=== PATIENT | female | born 1980 | race Caucasian/White ===

== ENCOUNTER → 2017-02-11 | Outpatient (CLI) | payer OTHER ==
[~2017-02-11] MED LIST: 00186-0372-20; 00186-0372-20 IH; ALBUTEROL0.83 MG/ML IH; IBU600 MG PO; NAPROXEN 3375 MG/TAB PO; NORCO 325 MG-51 TAB PO; PERCOCET 325 MG1 TA2 PO; TUSS PO; ZYRTEC 10MG10 MG PO
== END ==
LOC: COL.RAD 13:00
DX: N83.202 Unspecified ovarian cyst, left side (principal)

== ENCOUNTER 2017-02-18 15:53 | Day surgery (SDC) | payer OTHER ==
[~2017-02-18] VITALS: Ht 172.7 cm; Wt 74.6 kg
[2017-02-18] VITALS (7 sets, daily range): BP systolic 103–122; BP diastolic 56–74; PULSE 73–81; TEMP 97–98
[~2017-02-18 15:53] MED LIST changes: -00186-0372-20 IH; -IBU600 MG PO; -NAPROXEN 3375 MG/TAB PO; -NORCO 325 MG-51 TAB PO; -ZYRTEC 10MG10 MG PO
[2017-02-18] MEDS ORDERED: NORCO 325 MG-51 TAB PO (16:12)
[2017-02-18] MEDS ORDERED: 00186-0372-20 IH (16:13)
[2017-02-18] MEDS ORDERED: NAPROXEN 3375 MG/TAB PO (16:13)
[2017-02-18] MEDS ORDERED: ZYRTEC 10MG10 MG PO (16:46)
[2017-02-18] MEDS ORDERED: PERCOCET 325 MG1 TA2 PO (18:51)
[2017-02-18] MEDS ORDERED: IBU600 MG PO (18:51)
== END 2017-02-18 21:20 | disposition home or self-care (01) ==
LOC: SDCO 15:53
DX: N83.12 Corpus luteum cyst of left ovary (principal); N83.8 Other noninflammatory disorders of ovary, fallopian tube and broad ligament; N70.11 Chronic salpingitis; K55.069 Acute infarction of intestine, part and extent unspecified; J45.909 Unspecified asthma, uncomplicated; F17.210 Nicotine dependence, cigarettes, uncomplicated; M79.7 Fibromyalgia; Z80.49 Family history of malignant neoplasm of other genital organs; Z80.1 Family history of malignant neoplasm of trachea, bronchus and lung
CPT/HCPCS: G0378; J0330; J1100; J1885; J2250; J2270; J2405; J2550; J2704; J2710; J3010

== ENCOUNTER 2017-07-15 05:26 | Day surgery (SDC) | payer OTHER ==
[~2017-07-15] VITALS: Ht 172.7 cm; Wt 64.1 kg
[2017-07-15] VITALS (9 sets, daily range): BP systolic 90–111; BP diastolic 44–76; PULSE 56–82; TEMP 97.3–97.6
[~2017-07-15 05:26] MED LIST changes: +00186-0372-20 IH; +IBU600 MG PO; +NAPROXEN 3375 MG/TAB PO; +NORCO 325 MG-51 TAB PO; +ZYRTEC 10MG10 MG PO
[2017-07-15] MEDS ORDERED: ULTRAM 50MG TAB50 MG PO (06:36)
[2017-07-15] MEDS ORDERED: ANUSOL HC CREAM30 GM TP (06:37)
[2017-07-15] MEDS ORDERED: ANUSOL-HC SUPPO25 MG RC (06:38)
[2017-07-15] MEDS ORDERED: PERCOCET 325 MG1 TA2 PO (09:01)
[2017-07-15] MEDS ORDERED: MOTRIN 600600 MG/TAB PO (09:02)
[2017-07-15] MEDS ORDERED: COLACE 100100 MG/CAP PO (09:02)
[2017-07-15] MEDS ORDERED: LIDOCAINE HCL100 M1 MM (09:05)
== END 2017-07-15 11:44 | disposition home or self-care (01) ==
LOC: SDCO 05:26
DX: K60.2 Anal fissure, unspecified (principal); K64.4 Residual hemorrhoidal skin tags; K64.8 Other hemorrhoids
CPT/HCPCS: J0690; J0694; J1100; J1170; J1200; J2250; J2405; J2704; J3010; J7120